=== PATIENT | female | born 1955 | race Caucasian/White ===

== ENCOUNTER → 2018-06-23 | Outpatient (CLI) | payer BC ==
--- NOTE | 2018-06-23 16:43 | MR ---
EXAMINATION TYPE: MR cervical spine wo/w con DATE OF EXAM: 06/23/2018 COMPARISON: None HISTORY: pain, cervicalgia TECHNIQUE: Multiplanar, multisequence images of the cervical spine were acquired utilizing 7.5 mL intravenous Ga davist gadolinium contrast. Diffusion weighted imaging was performed. FINDINGS: Anterior cervical fusion device spans the C5-C7 vertebral bodies. Cervical cord signal is within normal limits. Visualized portions of posterior fossa are also within normal limits. No abnorm al prevertebral soft tissue swelling. Alignment and vertebral body heights are maintained although ross sceptibility artifact limits evaluation of the postsurgical levels. C2-C3: There is a small central disc osteophyte complex without spinal canal stenosis or neural oleg inal narrowing. C3-C4: There is a small central disc osteophyte complex and facet arthropathy mildly narrowing the le ft neural foramen. Right neural foramen and spinal canal are patent. C4-C5: There is a right eccentric broad-based disc bulge and uncovertebral hypertrophy minimally narr owing the right neural foramen and slightly narrowing the ventral subarachnoid space. No significant spinal canal stenosis or left neural foraminal narrowing. C5-C6: Postsurgical changes seen. There is ossification that bulges posteriorly at the intervertebral disc space from osseous bridging of the postsurgical site. This creates mild spinal canal stenosis. This also contributes to mild left neural foraminal narrowing. Right neuroforamen is patent. C6-C7: Postsurgical changes noted. No spinal canal stenosis or neural foraminal narrowing. C7-T1: No evidence for degenerative disc disease. No disc bulge/herniation or protrusion. No Canal stenosis. Foramina are patent bilaterally. Postcontrast images demonstrate no evidence of epidural fibrosis. No abnormal enhancement of the spin al canal. No abnormal enhancement of the vertebral bodies. IMPRESSION: 1. Mild degenerative disc disease at C2-C5 resulting in mild left neural foraminal narrowing at C3-C4 and minimal narrowing at C4-C5 of the right neural foramen. 2. Posterior bulging of ossification at the C5-C6 intervertebral level bridging the postsurgical site creating mild spinal canal stenosis and mild left neural foraminal narrowing. 3. No evidence of abnormal postcontrast enhancement. No epidural fibrosis.
== END ==
LOC: RADMRIMAIN 13:51
PROVIDERS: ATTEND Orthopaedic Surgery Orthopaedic Surgery of the Spine
DX: M48.02 Spinal stenosis, cervical region (principal); M50.321 Other cervical disc degeneration at C4-C5 level; M50.222 Other cervical disc displacement at C5-C6 level
CPT/HCPCS: 82565; 84520; 72156; A9585